=== PATIENT | male | born 1955 | race American Indian/Alaskan Native ===

== ENCOUNTER 2021-12-24 10:55 | Outpatient (CLI) | payer OTHER ==
--- NOTE | 2021-12-24 13:27 | XRay Report ---
BILATERAL HANDS 3 VIEWS INDICATION: BILATERAL HAND PAIN. COMPARISON: None. IMPRESSION: No acute osseous or soft tissue abnormality. 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 The remaining joint spaces are unremarka ble. No erosive joint pathology. BILATERAL ANKLES 2 VIEWS INDICATION: Bilateral ankle pain. COMPARISON: None. IMPRESSION: No acute osseous or soft tissue abnormality. No significant DJD. Moderate to large pl adin spurs are noted bilaterally. BILATERAL KNEES STANDING AP VIEW INDICATION: Bilateral knee pain. COMPARISON: None. IMPRESSION: No acute osseous or soft tissue abnormality. No significant DJD. Signer Name: Ruiz Cárdenas Jr, MD Signed: 12/24/2021 1:23 PM Workstation Name: [id number]
== END 2021-12-24 10:56 | disposition home or self-care (01) ==
LOC: XRAY 10:55
PROVIDERS: ATTEND Internal Medicine
DX: M77.31 Calcaneal spur, right foot (principal); M77.32 Calcaneal spur, left foot; M25.561 Pain in right knee; M25.562 Pain in left knee
CPT/HCPCS: 73565